=== PATIENT | female | born 1990 | race Asian ===

== ENCOUNTER 2019-01-10 19:02 | Emergency (ER) | payer SELFPAY ==
[2019-01-10 20:19] VITALS: BP 110/74
--- NOTE | 2019-01-10 20:40 | UC ---
HPI Wound/Suture Re-check - HPI Summary HPI Summary: 28-year-old female presents for wound check and suture removal. She was initially seen here on 01/05/2019 for laceration to her chin that occurred after she tripped and fell while playing tennis. Wound was repaired using a total of 3 interrupted sutures. Denies fever, chills, redness, swelling, or drainage. - History Of Current Complaint Chief Complaint: UCLaceration Stated Complaint: SUTURE REMOVAL Time Seen by Provider: 01/10/19 19:58 Hx Obtained From: Patient Hx Last Menstrual Period: 12/17/18 Pain Intensity: 6 - Allergies/Home Medications Allergies/Adverse Reactions: Allergies Allergy/AdvReac Type Severity Reaction Status Date / Time No Known Allergies Allergy Verified 01/10/19 19:17 PMH/Surg Hx/FS Hx/Imm Hx Previously Healthy: Yes - Denies significant PMH - Surgical History Surgical History: None - Family History Known Family History: Positive: Non-Contributory - Social History Occupation: Student Lives: With Family Alcohol Use: Rare Substance Use Type: None Smoking Status (MU): Never Smoked Tobacco - Immunization History Most Recent Tetanus Shot: UNKNOWN Review of Systems All Other Systems Reviewed And Are Negative: Yes Constitutional: Negative: Fever, Chills Skin: Positive: Other - See HPI Respiratory: Positive: Negative Cardiovascular: Positive: Negative Gastrointestinal: Positive: Negative Genitourinary: Positive: Negative Motor: Positive: Negative Neurovascular: Positive: Negative Musculoskeletal: Positive: Negative Neurological: Positive: Negative Is Patient Immunocompromised?: No Physical Exam - Summary Physical Exam Summary: GENERAL APPEARANCE: Well developed, well nourished, alert and cooperative, and appears to be in no acute distress. HEAD: Atraumatic. Normocephalic. Healing laceration to chin with well approximated wound margins and 3 intact interrupted sutures. There is some crusting over the wound but no erythema, edema, or drainage noted. CARDIAC: Normal S1 and S2. No S3, S4 or murmurs. Rhythm is regular. There is no peripheral edema, cyanosis or pallor. Extremities are warm and well perfused. Capillary refill is less than 2 seconds. Peripheral pulses intact. LUNGS: Clear to auscultation without rales, rhonchi, wheezing or diminished breath sounds. ABDOMEN: Positive bowel sounds. Soft, nondistended, nontender. No guarding or rebound. No masses or hepatosplenomegally. MUSKULOSKELETAL: ROM intact to all extremities. No joint erythema or tenderness. Normal muscular development. Normal gait. SKIN: Skin normal color, texture and turgor. Triage Information Reviewed: Yes Vital Signs: Initial Vital Signs Temp 99.2 F 01/10/19 19:14 Pulse 66 01/10/19 19:14 Resp 16 01/10/19 19:14 BP 110/74 01/10/19 19:14 Pulse Ox 100 01/10/19 19:14 Vital Signs Reviewed: Yes Course/Dx - Course Course Of Treatment: 28-year-old female presents for wound check and suture removal. She was initially seen here on 01/05/2019 for laceration to her chin that occurred after she tripped and fell while playing tennis. Wound was repaired using a total of 3 interrupted sutures. Denies fever, chills, redness, swelling, or drainage. Afebrile. Vital signs stable. Patient had a healing laceration to chin with well approximated wound margins and 3 intact interrupted sutures. There was some crusting over the wound but no erythema, edema, or drainage noted. The crusting over the wound was loosened using a saline and hydrogen peroxide solution. The interrupted sutures were then removed without difficulty. Discussed continued wound care including scar reduction measures with the patient. She is to follow-up with her primary care provider if needed. Anticipatory guidance and warning symptoms were reviewed with the patient. Verbalizes understanding and agrees with plan of care - Differential Dx - Laceration/Wound Differential Diagnoses: Healing Wound - Diagnosis Provider Diagnosis: Laceration of chin without complication, Encounter for removal of sutures Discharge ED - Sign-Out/Discharge Documenting (check all that apply): Patient Departure All imaging exams completed and their final reports reviewed: No Studies - Discharge Plan Condition: Stable Disposition: HOME Patient Education Materials: Laceration (ED) Referrals: No Primary Care Phys,NOPCP [Primary Care Provider] - Additional Instructions: Clean the wound with a mild soap and water at least once a day. Apply some antibiotic ointment and cover with a bandage until fully healed. While your laceration continues to heal, you should avoid sun exposure. Sun exposure may cause your scars to discolor, or turn darker than the surrounding skin. You should use sun block with an SPF of 35 or greater. Use acetaminophen (Tylenol) or ibuprofen (Advil, Motrin) according to directions as needed for pain. Watch for signs of infection including fever greater than 100.5 F, severe pain not managed with pain medication, redness that spreads, swelling of the hand/ fingers, or pus draining from the wound. Seek immediate medical attention should any of these occur. - Billing Disposition and Condition Condition: STABLE Disposition: Home - Attestation Statements Provider Attestation: Per institutional requirements, I have reviewed the chart, however, I was not consulted specifically or made aware of this patient by the midlevel provider. I did not personally evaluate, interact with , or disposition this patient.
== END 2019-01-10 20:44 | disposition home or self-care (01) ==
LOC: UCEAST 19:02
DX: Z48.02 Encounter for removal of sutures (principal)